=== PATIENT | male | born 1985 | race Two or more races ===

== ENCOUNTER 2024-06-07 13:28 | Emergency (ER) | payer MEDICAID, SELFPAY ==
[2024-06-07 13:52] VITALS: BP 142/90; PULSE 67; RESP 18; TEMP 36.6; O2SAT 100; BMI 26.5
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
== END 2024-06-07 18:45 | disposition home or self-care (01) ==
PROVIDERS: Emergency Provider Emergency Medicine; PCP Physician Assistant
DX: R51.9 Headache, unspecified (principal)
CPT/HCPCS: 70450; 99284